=== PATIENT | female | born 1985 | race Caucasian/White ===

== ENCOUNTER 2021-12-07 20:10 | Emergency (ER) | payer OTHER ==
[~2021-12-07 20:10] MED LIST: BUPROPION XL150 MG PO; FLEXERIL10 MG PO; FLOMAX 0.4 MG0.4 MG PO; LEXAPRO 10MG TA10 MG PO; NORCO 5-325 TA1 EACH PO; VOLTAREN **OUT50 MG PO
[2021-12-07 20:49] LABS: BASOPHIL 0.6 % (0-2); EOSINOPHIL 1.6 % (0-5); HCT 44.1 % (37.0-47.0); HGB 14.6 g/dl (12.5-16.0); MCH 29.7 pg (25.0-31.0); MCHC 33.1 g/dL (32.0-36.0); MCV 89.6 fL (78.0-100.0); MONOCYTE 5.3 % (0-12); MPV 10.1 fL (6.0-9.5); NRBC 0; PLT 315 K/uL (150-400); RBC 4.92 M/uL (4.20-5.40)
[2021-12-07 21:15] LABS: ALBUMIN 4.3 g/dL (3.4-5.0); BILIRUBIN - TOTAL 1.1 mg/dL (0.2-1.0); BUN/CREAT RATIO (CALC) 14.5 RATIO; CREATININE 0.62 mg/dL (0.51-0.95); GLOBULIN (CALCULATION) 3.3 g/dL; MAGNESIUM 1.8 mg/dL (1.8-2.4); POTASSIUM 3.7 mmol/L (3.5-5.1); TOTAL PROTEIN 7.6 g/dL (6.4-8.2)
[2021-12-07 21:39] LABS: BILIRUBIN NEGATIVE (NEGATIVE); BLOOD TRACE-INTACT Ery/uL (NEGATIVE); CLARITY CLEAR (CLEAR); COLOR YELLOW (YELLOW); GLUCOSE (U) NORMAL (NORMAL); LEUKOCYTES NEGATIVE Leu/uL (NEGATIVE); NITRITE NEGATIVE (NEGATIVE); PROTEIN NEGATIVE (NEGATIVE); UROBILINOGEN 0.2 mg/dL (0.2-1.0)
[2021-12-07 21:40] LABS: AMPHETAMINES NEGATIVE (NEGATIVE); BARBITURATES NEGATIVE (NEGATIVE); ECSTASY (MDMA) NEGATIVE (NEGATIVE); MARIJUANA (THC) NEGATIVE (NEGATIVE); METHADONE NEGATIVE (NEGATIVE); OPIATES NEGATIVE (NEGATIVE); OXYCODONE NEGATIVE (NEGATIVE)
[2021-12-07 21:40] LABS: CORONAVIRUS 2019 SARS-COV-2 NEGATIVE (NEGATIVE); INFLUENZA A NAA NEGATIVE (NEGATIVE)
[2021-12-07 21:45] LABS: BACTERIA TRACE; MUCOUS TRACE; URINARY WBC RARE
[2021-12-07] MEDS ORDERED: PHENERGAN25 M1 PO (23:19)
[2021-12-07] MEDS ORDERED: ANTIVERT25 MG PO (23:19)
[2021-12-07] MEDS ORDERED: ONDANSETRON ODT4 MG PO (23:19)
== END 2021-12-07 23:51 | disposition home or self-care (01) ==
LOC: FER 20:10
PROVIDERS: Internal Medicine
DX: R42 Dizziness and giddiness (principal); R11.0 Nausea; F17.210 Nicotine dependence, cigarettes, uncomplicated; Z20.822 Contact with and (suspected) exposure to COVID-19
CPT/HCPCS: 36415; 70450; 80053; 80305; 81001; 83735; 84145; 84439; 84443; 84484; 85025; 93005; J2405; J2550; J7120; U0002